=== PATIENT | male | born 1990 | race Caucasian/White ===

== ENCOUNTER 2019-10-27 11:09 | Inpatient (IN) ==
[2019-10-27] MEDS ORDERED: cefTRIAXone 1 gm/50 mL NS BAG 1 GM/50 ML BAG IV ONE (11:53)
[2019-10-27] MEDS ORDERED: Azithromycin 500 mg/250 ml NS 500 MG/250 ML BAG IVPB ONE (11:53)
[2019-10-27] MEDS: NS 0.9% 1000 ml BAG 2,000 ML IV ONE (13:01)
[2019-10-27 13:04] LABS: ABS Basophils 0.1 10^3/ul (0-0.2); ABS Lymphocytes 0.6 10^3/ul (1.0-4.8); ABS Monocytes 1.4 10^3/ul (0-0.8); Eosinophil % 0.1 %; Hematocrit 44 % (42-52); Hemoglobin 15.1 g/dL (14.0-18.0); Lymphocyte % 3.3 %; Mean Corpuscular HGB Conc 34 g/dL (31-36); Mean Corpuscular Hemoglobin 31 pg (27-31); Mean Corpuscular Volume 90 fL (80-94); Mean Platelet Volume 6.1 fL (7.4-10.4); Platelet Count 286 10^3/uL (150-450); Red Blood Count 4.89 10^6 /uL (4.18-5.48); Red Cell Distribution Width 13 % (10-15); White Blood Count 17.7 10^3/uL (3.5-10.8)
[2019-10-27 13:22] LABS: Albumin 3.8 g/dL (3.2-5.2); Albumin/Globulin Ratio 1.4 (1-3); C Reactive Protein 13.87 mg/L (<8.01); EGFR African American 151.3 (>60); Globulin 2.7 g/dL (2-4); Potassium 3.9 mmol/L (3.5-5.0); Total Bilirubin 1.3 mg/dL (0.2-1.0); Total Protein 6.5 g/dL (6.4-8.9)
[2019-10-27 13:31] LABS: Activated Partial Thrombo Time 31.1 seconds (26.0-38.0); INR 0.99 (0.82-1.09)
[2019-10-27 13:38] LABS: Urine Appearance Clear; Urine Bilirubin Negative (Negative); Urine Blood Negative (Negative); Urine Color Straw; Urine Glucose Negative (Negative); Urine Ketones Trace (Negative); Urine Nitrite Negative (Negative); Urine Protein Negative (Negative); Urine Specific Gravity 1.008 (1.010-1.030); Urine Urobilinogen Negative (Negative)
[2019-10-27] MEDS ORDERED: Ondansetron 4 mg VIAL 2 MG/ML 2 ml VIAL IV ONE (14:10)
[2019-10-27] MEDS ORDERED: NS 0.9% 1000 ml BAG 1,000 ML IV ONE (15:24)
[2019-10-27] MEDS ORDERED: metroNIDAZOLE IV 500 MG/100ML 500 MG/100 ML BAG IVPB ONE (15:44)
[2019-10-27] MEDS ORDERED: Enoxaparin 40 MG/0.4 ML SYR(*) SUBCUT SCH (17:00)
[2019-10-27] MEDS ORDERED: Vancomycin(*) 1,500 MG in NS 0.9% 250 ml 250 ML IVPB ONE (17:30)
[2019-10-27] MEDS: NS 0.9% 1000 ml BAG 1,000 ML IV SCH (18:25)
[2019-10-27] MEDS: Buprenorp/Nalox 8-2 MG FILM SL FILM SCH (20:42)
[2019-10-27] MEDS ORDERED: Cefepime 2 GM in Dextrose(*) 2 GM/50 ML BAG IV SCH (21:00)
[2019-10-28] MEDS: Vancomycin(*) 1,000 MG in NS 0.9% 250 ml 250 ML IV SCH ×3 (00:10→12:41)
[2019-10-28] MEDS: NS 0.9% 1000 ml BAG 1,000 ML IV SCH (02:25)
[2019-10-28 08:05] LABS: ABS Eosinophils 0.2 10^3/ul (0-0.6); ABS Monocytes 0.8 10^3/ul (0-0.8); Eosinophil % 2.3 %; Hematocrit 37 % (42-52); Hemoglobin 12.8 g/dL (14.0-18.0); Lymphocyte % 19.1 %; Mean Corpuscular HGB Conc 35 g/dL (31-36); Mean Corpuscular Hemoglobin 32 pg (27-31); Mean Corpuscular Volume 90 fL (80-94); Mean Platelet Volume 6.6 fL (7.4-10.4); Nucleated Red Blood Cells % 0.1; Platelet Count 213 10^3/uL (150-450); Red Blood Count 4.04 10^6 /uL (4.18-5.48); Red Cell Distribution Width 14 % (10-15); White Blood Count 10.4 10^3/uL (3.5-10.8)
[2019-10-28 08:15] LABS: BUN/Creatinine Ratio 21.8 (8-20); Calcium 8.2 mg/dL (8.6-10.3); EGFR African American 213.1 (>60); EGFR Non-African American 176.1 (>60); Potassium 4.1 mmol/L (3.5-5.0)
[2019-10-28] MEDS: Buprenorp/Nalox 8-2 MG FILM SL FILM SCH (08:27)
[2019-10-28] MEDS ORDERED: Cefepime 2 GM in Dextrose(*) 2 GM/50 ML BAG IV SCH (09:00)
[2019-10-28] MEDS ORDERED: DULoxetine DR 60 mg CAP PO SCH (09:00)
[2019-10-28] MEDS ORDERED: Mometasone/Formoter 200/5 MDI INH SCH (09:00)
[2019-10-28] MEDS ORDERED: Vancomycin Trough Check NOTE FOLLOW UP ONE ×2 (14:15→18:00)
[2019-10-28] MEDS ORDERED: Azithromycin 500 mg/250 ml NS 500 MG/250 ML BAG IVPB SCH (15:00)
[2019-10-28 16:44] VITALS: BP 103/56
== END 2019-10-28 17:00 | disposition home or self-care (01) | DRG 720 ==
LOC: ED 11:09 → ICU 17:05 → MED 10-28 07:21
PROVIDERS: ADMIT Nurse Practitioner; ATTEND Hospitalist